=== PATIENT | female | born 1980 | race Caucasian/White ===

== ENCOUNTER 2017-12-20 22:20 | Emergency (ER) | payer MEDICAID, OTHER ==
[~2017-12-20] VITALS: Ht 160 cm; Wt 88.5 kg
[~2017-12-20 22:20] MED LIST: CARI-316; FLUO-125; HYDR-2595; PHENTERMINE 37.5 MG; PRESTIQ PO; SAVELLA PO; SOMA PO; VICODIN
[2017-12-20 22:29] VITALS: BP 121/83
[2017-12-20] MEDS ORDERED: LORazepam 0.5 MG TAB ONE (22:48)
[2017-12-20] MEDS ORDERED: LORazepam 0.5 MG TAB PO ONE (23:00)
== END 2017-12-21 03:48 | disposition left against medical advice (07) ==
LOC: EDBD 22:20 → ER 22:20
DX: F41.9 Anxiety disorder, unspecified (principal); Z53.21 Procedure and treatment not carried out due to patient leaving prior to being seen by health care provider
CPT/HCPCS: 93005

== ENCOUNTER 2019-04-11 09:08 | Emergency (ER) | payer MEDICAID ==
[~2019-04-11] VITALS: Ht 160 cm; Wt 89.4 kg
[~2019-04-11 09:08] MED LIST changes: -CARI-316; +CARI350T22
[2019-04-11 09:54] LABS: Eosinophils # (auto) 0.1 uL; Monocytes # (auto) 0.8 uL
[2019-04-11 10:00] LABS: Basophils # (auto) 0 uL; Basophils % (auto) 0.5 % (0.0-2.0); Eosinophils % (auto) 1.5 % (0.0-7.0); Hematocrit 34.6 % (36.0-46.0); Hemoglobin 11.3 g/dL (12.2-16.2); Lymphocytes # (auto) 2.3 uL; Lymphocytes % (auto) 25.8 % (10.0-50.0); Mean Corpuscular Hemoglobin 25.4 pg (28.0-32.0); Mean Corpuscular Hgb Conc. 32.5 g/dL (32.0-36.0); Mean Corpuscular Volume 78.2 fL (80.0-100.0); Monocytes % (auto) 8.3 % (0.0-12.0); Neutrophils # (auto) 5.8 uL; Neutrophils % (auto) 63.9 % (37.0-80.0); Nucleated Red Blood Cells % 0.1 %; Platelet Count (auto) 360 10^3/uL (140-450); Red Blood Cells 4.43 10^6/uL (4.0-5.20); Red Cell Distribution Width 15.9 % (11.8-14.3); White Blood Cell 9.1 10^3/uL (4.4-10.8)
[2019-04-11 10:24] LABS: Albumin 3.8 g/dL (3.4-5.0); Anion Gap 8 (5-15); Blood Urea Nitrogen 15 mg/dL (7-18); Calcium 8.5 mg/dL (8.5-10.1); Carbon Dioxide 22 mmol/L (21-32); Chloride 110 mmol/L (98-107); Glucose 105 mg/dL (74-106); Sodium 140 mmol/L (136-145)
[2019-04-11 10:30] LABS: Alanine Aminotransferase 21 U/L (13-56); Alkaline Phosphatase 70 U/L (45-117); Aspartate Aminotransferase 12 U/L (15-37); BUN/Creatinine Ratio 18.3; Bilirubin, Total 0.3 mg/dL (0.2-1.0); GFR African American 100 mL/min; GFR Non-African American 82 mL/min; Total Protein 7.3 g/dL (6.4-8.2)
[2019-04-11 10:32] LABS: Urine WBC None Seen /hpf (0 - 5)
[2019-04-11 10:45] LABS: Urine Bacteria NONE SEEN /hpf (None Seen); Urine Blood Negative /uL (Negative); Urine Specific Gravity 1.021 (1.001-1.035)
[2019-04-11 16:12] VITALS: BP 134/88
== END 2019-04-11 18:17 | disposition home or self-care (01) ==
LOC: ER 09:13
DX: R07.89 Other chest pain (principal); D50.9 Iron deficiency anemia, unspecified; F32.9 Major depressive disorder, single episode, unspecified; F41.9 Anxiety disorder, unspecified; Z79.899 Other long term (current) drug therapy
CPT/HCPCS: 36415; 71046; 80053; 81001; 84443; 84484; 85025; 93005; 94761

== ENCOUNTER 2019-04-16 06:30 | Emergency (ER) | payer MEDICAID ==
[~2019-04-16] VITALS: Ht 160 cm; Wt 89.4 kg
[2019-04-16 07:03] LABS: Basophils # (auto) 0.1 uL; Basophils % (auto) 0.6 % (0.0-2.0); Eosinophils # (auto) 0.1 uL; Hematocrit 35.8 % (36.0-46.0); Hemoglobin 11.7 g/dL (12.2-16.2); Mean Corpuscular Hemoglobin 25.6 pg (28.0-32.0); Monocytes # (auto) 0.6 uL
[2019-04-16 07:04] VITALS: BP 131/66
[2019-04-16 07:05] LABS: Eosinophils % (auto) 1.1 % (0.0-7.0); Lymphocytes # (auto) 2.1 uL; Lymphocytes % (auto) 21.3 % (10.0-50.0); Mean Corpuscular Hgb Conc. 32.6 g/dL (32.0-36.0); Mean Corpuscular Volume 78.5 fL (80.0-100.0); Monocytes % (auto) 5.9 % (0.0-12.0); Neutrophils # (auto) 6.9 uL; Neutrophils % (auto) 71.1 % (37.0-80.0); Platelet Count (auto) 358 10^3/uL (140-450); Red Blood Cells 4.56 10^6/uL (4.0-5.20); White Blood Cell 9.8 10^3/uL (4.4-10.8)
[2019-04-16 07:17] LABS: INR 0.91 (0.9-1.15); Partial Thromboplastin Time 29.9 sec (23.64-32.05); Prothrombin Time 9.9 sec (9.06-12.60)
[2019-04-16 07:20] LABS: Alanine Aminotransferase 17 U/L (13-56); Albumin 3.9 g/dL (3.4-5.0); Anion Gap 12 (5-15); Aspartate Aminotransferase 9 U/L (15-37); Blood Urea Nitrogen 15 mg/dL (7-18); Calcium 8.4 mg/dL (8.5-10.1); Carbon Dioxide 21 mmol/L (21-32); Chloride 106 mmol/L (98-107); Glucose 101 mg/dL (74-106); Magnesium 2.1 mg/dL (1.6-2.6); Potassium 3.8 mmol/L (3.5-5.1); Sodium 139 mmol/L (136-145)
[2019-04-16 07:25] LABS: Alkaline Phosphatase 80 U/L (45-117); BUN/Creatinine Ratio 17.6; Bilirubin, Total 0.3 mg/dL (0.2-1.0); GFR African American 96 mL/min; GFR Non-African American 79 mL/min; Total Protein 7.3 g/dL (6.4-8.2)
[2019-04-16] MEDS ORDERED: ASPirin 81 mg TAB PO ONE (07:30)
[2019-04-16] MEDS ORDERED: LORazepam 2MG/ML-1ML VIAL IV ONE (07:30)
[2019-04-16 09:38] LABS: Urine Bacteria FEW /hpf (None Seen); Urine Blood TRACE /uL (Negative); Urine Mucus FEW (None Seen); Urine Specific Gravity 1.031 (1.001-1.035); Urine WBC 1 /hpf (0 - 5)
== END 2019-04-16 11:18 | disposition home or self-care (01) ==
LOC: ER 06:30
DX: R07.89 Other chest pain (principal); Z91.013 Allergy to seafood
CPT/HCPCS: 36415; 71046; 80053; 81001; 83735; 83880; 84443; 84484; 85025; 85610; 85730; 93005; 96374; 99284; J2060

== ENCOUNTER 2020-11-29 02:03 | Emergency (ER) | payer MEDICAID ==
[~2020-11-29] VITALS: Ht 162.6 cm; Wt 77.1 kg
[2020-11-29] MEDS ORDERED: ALPRAZolam 0.5 MG TAB PO ONE (08:45)
[2020-11-29 08:53] LABS: Eosinophils # (auto) 0.2 10 ^3/uL (0-0.8); Hemoglobin 10.6 g/dL (12.2-16.2); Lymphocytes # (auto) 2.6 10 ^3/uL (0.4-5.4); Lymphocytes % (auto) 33.6 % (10.0-50.0); Mean Corpuscular Hgb Conc. 32.4 g/dL (32.0-36.0); Mean Corpuscular Volume 77.6 fL (80.0-100.0); Monocytes # (auto) 0.6 10 ^3/uL (0-1.3); Neutrophils # (auto) 4.2 10 ^3/uL (1.6-8.6); Platelet Count (auto) 307 10^3/uL (140-450); White Blood Cell 7.7 10^3/uL (4.4-10.8)
[2020-11-29 08:54] LABS: Basophils # (auto) 0.1 10 ^3/uL (0-0.2); Basophils % (auto) 0.7 % (0.0-2.0); Eosinophils % (auto) 3.1 % (0.0-7.0); Hematocrit 32.7 % (36.0-46.0); Mean Corpuscular Hemoglobin 25.1 pg (28.0-32.0); Neutrophils % (auto) 54.6 % (37.0-80.0); Red Blood Cells 4.21 10^6/uL (4.0-5.20)
[2020-11-29 09:10] LABS: Calcium 8.3 mg/dL (8.5-10.1); Chloride 108 mmol/L (98-107); Potassium 3.9 mmol/L (3.5-5.1); Sodium 138 mmol/L (136-145)
[2020-11-29 09:18] LABS: Alanine Aminotransferase 18 U/L (13-56); Albumin 3.5 g/dL (3.4-5.0); Alkaline Phosphatase 67 U/L (45-117); Anion Gap 4 (5-15); Aspartate Aminotransferase 12 U/L (15-37); BUN/Creatinine Ratio 17.1; Bilirubin, Total 0.3 mg/dL (0.2-1.0); Blood Urea Nitrogen 12 mg/dL (7-18); Carbon Dioxide 26 mmol/L (21-32); GFR African American 119 mL/min; GFR Non-African American 99 mL/min; Glucose 86 mg/dL (74-106); Total Protein 7.2 g/dL (6.4-8.2)
[2020-11-29 10:00] VITALS: BP 111/51
== END 2020-11-29 10:09 | disposition home or self-care (01) ==
LOC: ER 02:03
DX: R07.89 Other chest pain (principal); F41.1 Generalized anxiety disorder; F32.9 Major depressive disorder, single episode, unspecified
CPT/HCPCS: 36415; 71045; 80053; 84443; 84484; 85025; 93005